=== PATIENT | male | born 1980 | race Two or more races ===

== ENCOUNTER 2021-09-17 22:26 | Emergency (ER) | payer MEDICAID, SELFPAY ==
[2021-09-17 22:32] VITALS: BP 125/81; PULSE 99; RESP 18; TEMP 36.4; O2SAT 100; BMI 22.1
--- NOTE | 2021-09-17 23:47 | ED_ITS ---
HPI - Wound/Laceration General Chief Complaint: Wound/Laceration Stated Complaint: Lac Time Seen by Provider: 09/17/21 23:45 Source: patient Mode of arrival: ambulatory History of Present Illness HPI narrative: 41-year-old male who is presenting with a laceration to the ulnar side of his right forearm that he sustained on a metal door and is unsure of his last tetanus vaccination. He denies any allergies to medications. Related Data Allergies Allergy/AdvReac Type Severity Reaction Status Date / Time No Known Allergies Allergy Verified 09/17/21 22:33 Review of Systems Review of Systems: Pertinent positives and negatives as stated in HPI 10 point review of systems is otherwise negative. [facility] Past Medical History Source: nursing notes reviewed Social History Social History Advance Directives: No Advance Directives Information Provided: No Physical Exam Vital Signs: Vital Signs: Last Vital Signs Temp 97.6 F 09/17/21 22:32 Pulse 99 09/17/21 22:32 Resp 18 09/17/21 22:32 BP 125/81 09/17/21 22:32 Pulse Ox 100 09/17/21 22:32 O2 Del Method 09/17/21 22:32 BMI result Body Mass Index 22.1 VITAL SIGNS: Reviewed. GENERAL: no acute distress. HEAD: Normocephalic/atraumatic EYES: PERRLA, EOMI EARS: Ext canals without abnormality OROPHARYNX: no oral lesions noted, posterior pharynx clear LUNGS: Normal breath sounds. SpO2<100> CARDIOVASCULAR: Regular rate and rhythm without noted murmurs ABDOMEN: Soft, non-tender, non-distended with bowel sounds. MUSCULOSKELETAL: No tenderness, deformities, or effusions noted on gross inspection. EXTREMITIES: No cyanosis, clubbing or edema; RIGHT FOREARM: 4.5 cm L-shaped laceration that is linear in nature, hemostatic SKIN: Inspection of the skin reveals no rashes NEUROLOGIC: Alert and oriented x 4. Strength and sensation to light touch were grossly intact x 4. Course Course Course Narrative: 41-year-old male with history and clinical presentation consistent with laceration to the right forearm which will be repaired, patient will received Tdap. Patient discharged in stable condition. Procedures Laceration Laceration 1: Site: upper extremity Side (If applicable): right Size (cm): 4.5 Description: linear and clean Depth: simple, single layer Local Anesthetic: lidocaine 1% Amount of anesthesia used (mL): 2 Pre-repair: wound explored, irrigated extensively and deep structures intact Skin layer closed with: nylon Size (cm): 4-0 Number of sutures: 4 Technique: simple, interrupted Discharge Plan Discharge Clinical Impression: Laceration Patient Disposition: Home, Self-Care Instructions: Laceration (ED), Care For Your Stitches (ED) Additional Instructions: 1. Recomendar Tylenol/ibuprofeno de venta lana seg?n sea necesario para controlar el dolor. 2. Puede quitar el vendaje y 24 horas y limpiar suavemente con agua y jab?n, aplicar un pramod?ento antibi?brian que est? disponible sin receta y cualquier [facility], aplicar un vendaje sobre el pramod?ento antibi?brian. 3. Regrese a esta cassie de emergencias en 5 d?as para que le quiten las suturas. Regrese a la cassie de emergencias si los s?ntomas empeoran. Print Language: Nepali
[2021-09-17] MEDS: Diphth,Pertus(ACell),Tet Adult 0.5 ML SYRINGE IM (23:49)
[2021-09-17] MEDS: Lidocaine HCl 1 % MPF 5 ML VIAL SUBCUT (23:50)
== END 2021-09-18 00:37 | disposition home or self-care (01) ==
PROVIDERS: Emergency Provider Student in an Organized Health Care Education/Training Program
DX: S51.811A Laceration without foreign body of right forearm, initial encounter (principal); S50.811A Abrasion of right forearm, initial encounter; Y28.9XXA Contact with unspecified sharp object, undetermined intent, initial encounter; Y93.9 Activity, unspecified; Y92.9 Unspecified place or not applicable; Y99.9 Unspecified external cause status
CPT/HCPCS: 12032; 90471; 90715; 99283; 99284

== ENCOUNTER 2021-09-22 16:19 | Emergency (ER) | payer MEDICAID, SELFPAY ==
[2021-09-22 16:42] VITALS: BP 112/58; PULSE 83; RESP 18; TEMP 36.4; O2SAT 97; BMI 24.7
--- NOTE | 2021-09-22 17:11 | ED_ITS ---
HPI - Wound/Laceration General Chief Complaint: Wound/Laceration Stated Complaint: suture removal right wrist Time Seen by Provider: 09/22/21 17:01 Source: patient Mode of arrival: ambulatory Limitations: no limitations History of Present Illness HPI narrative: 41-year-old male here for suture removal from the right wrist. These replaced 6 days ago. No complaints Related Data Allergies Allergy/AdvReac Type Severity Reaction Status Date / Time No Known Allergies Allergy Verified 09/17/21 22:33 Review of Systems Review of Systems: Yes all other systems are reviewed and are negative Constitutional: Constitutional: Reports no additional constitutional complaints, Denies body ache(s), Denies chills, Denies fever(s), Denies headache(s) and Denies weakness Eyes: Eyes: Reports no additional eye complaints and Denies change in vision ENT: Reports system reviewed and no additional complaints, except as documented, Denies dizziness, Denies headache(s), Denies nasal congestion, Denies nasal discharge and Denies neck pain Cardiovascular: Cardiovascular: Reports no additional cardiovascular complaints, Denies chest pain, Denies leg edema and Denies dyspnea Respiratory: Respiratory: Reports no additional respiratory complaints, Denies cough and Denies dyspnea Gastrointestinal: Gastrointestinal: Reports no additional gastrointestinal complaints, Denies abdominal pain, Denies diarrhea, Denies nausea and Denies vomiting Genitourinary: Genitourinary: Denies urinary incontinence Musculoskeletal: Musculoskeletal: Reports no additional musculoskeletal complaints, Denies back pain, Denies arthralgias, Denies joint swelling, Denies neck pain, Denies numbness and Denies tingling Integumentary/Breasts: Skin/Breast: Reports system reviewed and no additional complaints, except as docu and Denies rash Neurologic: Reports system reviewed and no additional complaints, except as documented, Denies Abnormal speech present, Denies dizziness, Denies headache(s), Denies numbness, Denies tingling and Denies weakness [facility] Past Medical History Attestation statement: The following information was validated with the patient. Source: old records reviewed and nursing notes reviewed Social History Social History Advance Directives: No Advance Directives Information Provided: No Physical Exam Vital Signs: Vital Signs: Last Vital Signs Temp 97.5 F 09/22/21 16:42 Pulse 83 09/22/21 16:42 Resp 18 09/22/21 16:42 BP 112/58 L 09/22/21 16:42 Pulse Ox 97 09/22/21 16:42 O2 Del Method 09/22/21 16:42 BMI result Body Mass Index 24.7 Const: General: cooperative, healthy appearing, comfortable and no acute distress Orientation/consciousness: patient oriented x3 Limitations: no limitations HEENT: Head: Yes normal to inspection Ears: hearing grossly normal bilaterally General nose exam: Normal external nose present Face and sinus: Yes normal facial exam Mouth: Normal oral and palatal mucosa present Throat: Yes posterior oropharynx normal Eyes: General: appearance normal, both eyes and all related structures Pupils: Equal, round and reactive pupils present Neck: Neck: Yes normal visual inspection Chest: Chest palpation & inspection: normal inspection of the chest Resp: Effort & Inspection: normal respiratory effort Auscultation: clear to auscultation bilaterally Cardio: Rate: regular rate Rhythm: regular rhythm Peripheral pulses: Peripheral pulses 2+ throughout GI: Inspection: Yes normal to inspection Palpation (GI): Soft to palpation and nontender Auscultation: normal bowel sounds Back/Spine/Pelvis: Thoracic/Lumbar Spine: thoracic and lumbar spine normal to inspection Skin: General skin exam: no rashes or lesions noted Neuro: General: patient oriented x3, no focal motor deficits and normal sensation to monofilament Cranial nerves: Yes Equal, round and reactive pupils present Cognition (Neuro): normal cognition Speech: No Abnormal speech present Gait exam (Neuro): Normal gait present Motor exam (neuro): 5/5 motor strength present throughout Extrem: Other: Over the right lateral wrist there is a laceration with edges that are approximated with sutures present. Full range of motion of the wrist and hand. General: Yes normal to inspection MDM - Wound/Laceration MDM Narrative Medical decision making narrative: 41-year-old male he seen here 4 sutures placed here for suture removal. Sutures were placed on 09/17. Edges are approximated. So we decided to remove the sutures. See procedure note. Medical Records Attestation: I reviewed the patient's medical records. Lab Data Attestation: I reviewed the patient's lab results. Procedures Procedure Narrative Procedure Narrative: Four sutures removed from the site. Wound was cleansed with saline and the skin. Topical Steri-Strips applied Discharge Plan Discharge Clinical Impression: Encounter for removal of sutures Patient Disposition: Home, Self-Care Instructions: Stitches Removal (ED) Interventions: ED Discharge Assessment Last Done: 09/22/21 17:28 Discharge Date/Time: 09/22/21 17:29 Print Language: [place]ian
== END 2021-09-22 17:29 | disposition home or self-care (01) ==
PROVIDERS: Emergency Provider Student in an Organized Health Care Education/Training Program
DX: Z48.02 Encounter for removal of sutures (principal); S61.511D Laceration without foreign body of right wrist, subsequent encounter; X58.XXXD Exposure to other specified factors, subsequent encounter
CPT/HCPCS: 99283

== ENCOUNTER 2021-11-30 07:55 | Emergency (ER) | payer MEDICAID, SELFPAY ==
--- NOTE | ~2021-11-30 | XR_ITS ---
EXAMINATION: XR LUMBOSACRAL SPINE CLINICAL INFORMATION: Low back and leg pain. COMPARISON: None TECHNIQUE: Three views of the lumbosacral spine. FINDINGS: There is normal lumbar lordosis and spinal alignment. The vertebral bodies are intact. Mild to moderate degenerative disc disease at L5-S1. The remainder the intervertebral disc spaces are unremarkable. The soft tissues are unremarkable. XR/XR lumbar spine 2-3V IMPRESSION: L5-S1 mild to moderate degenerative disc disease.
[2021-11-30 07:58] VITALS: BP 124/84; PULSE 82; RESP 18; TEMP 36.6; O2SAT 99; BMI 23.9
--- NOTE | 2021-11-30 10:35 | ED_ITS ---
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 No associated numbness/tingling/weakness of the extremities. No saddle anesthesia. No bowel or bladder incontinence. No fevers, chills. Related Data Previous Rx's Medication Instructions Recorded cyclobenzaprine 10 mg tablet 10 mg PO TID PRN muscle spasm #14 11/30/21 tabs lidocaine 5 % topical patch 1 patch topical DAILY #30 ea 11/30/21 (Lidoderm) naproxen 500 mg tablet 500 mg PO BID PRN pain #30 tabs 11/30/21 Allergies Allergy/AdvReac Type Severity Reaction Status Date / Time No Known Allergies Allergy Verified 09/17/21 22:33 Review of Systems Review of Systems: Yes all other systems are reviewed and are negative Constitutional: Constitutional: Reports no additional constitutional complaints, Denies body ache(s), Denies chills, Denies fever(s), Denies headache (s) and Denies weakness Eyes: Eyes: Reports no additional eye complaints and Denies change in vision ENT: Reports system reviewed and no additional complaints, except as documented, Denies dizziness, Denies headache(s), Denies nasal congestion, Denies nasal discharge and Denies neck pain Cardiovascular: Cardiovascular: Reports no additional cardiovascular complaints, Denies chest pain, Denies leg edema and Denies dyspnea Respiratory: Respiratory: Reports no additional respiratory complaints, Denies cough and Denies dyspnea Gastrointestinal: Gastrointestinal: Reports no additional gastrointestinal complaints, Denies abdominal pain, Denies diarrhea, Denies nausea and Denies vomiting Genitourinary: Genitourinary: Denies urinary incontinence Musculoskeletal: Musculoskeletal: Reports no additional musculoskeletal complaints, Reports back pain, Denies arthralgias, Denies joint swelling, Denies neck pain, Denies numbness, Reports radiating pain into limb and Denies tingling Integumentary/Breasts: Skin/Breast: Reports system reviewed and no additional complaints, except as docu and Denies rash Neurologic: Reports system reviewed and no additional complaints, except as documented, Denies Abnormal speech present, Denies dizziness, Denies headache(s), Denies numbness, Denies tingling and Denies weakness PMFSH Past Medical History Attestation statement: The following information was validated with the patient. Source: old records reviewed and nursing notes reviewed Social History Social History Advance Directives: No Advance Directives Information Provided: Yes Physical Exam Vital Signs: Vital Signs: Last Vital Signs Temp 98 F 11/30/21 07:58 Pulse 82 11/30/21 07:58 Resp 18 11/30/21 07:58 BP 124/84 11/30/21 07:58 Pulse Ox 99 11/30/21 07:58 BMI result Body Mass Index 23.9 Const: General: cooperative, healthy appearing, comfortable and no acute distress Orientation/consciousness: patient oriented x3 Limitations: no limitations HEENT: Head: Yes normal to inspection Ears: hearing grossly normal bilaterally General nose exam: Normal external nose present Face and sinus: Yes normal facial exam Mouth: Normal oral and palatal mucosa present Throat: Yes posterior oropharynx normal Eyes: General: appearance normal, both eyes and all related structures Pupils: Equal, round and reactive pupils present Neck: Neck: Yes normal visual inspection Chest: Chest palpation & inspection: normal inspection of the chest Resp: Effort & Inspection: normal respiratory effort Auscultation: clear to auscultation bilaterally Cardio: Rate: regular rate Rhythm: regular rhythm Peripheral pulses: Peripheral pulses 2+ throughout GI: Inspection: Yes normal to inspection Palpation (GI): Soft to palpation and nontender Auscultation: normal bowel sounds Back/Spine/Pelvis: Other: TTP to midline lumbar spine and right SI joint with compression as well as right buttocks No step offs or deformities Pain with right straight leg raise. Thoracic/Lumbar Spine: thoracic and lumbar spine normal to inspection Skin: General skin exam: no rashes or lesions noted Neuro: General: patient oriented x3, no focal motor deficits and normal sensation to monofilament Cranial nerves: Yes CN's II-XII intact bilaterally, Yes Equal, round and reactive pupils present, Yes Bilaterally intact EOM present, Yes Nystagmus not present, Yes Normal facial strength present and Yes Midline tongue present Cognition (Neuro): normal cognition Speech: No Abnormal speech present Gait exam (Neuro): Normal gait present Motor exam (neuro): 5/5 motor strength present throughout Sensory Exam: Normal double simultaneous stimulation for sensation Deep tendon reflexes (DTR's): Right patellar reflex intensity grade: 2+ and Left patellar reflex intensity grade: 2+ Extrem: General: Yes normal to inspection Course Course Course Narrative: X-rays show no bony abormality. Likely lumbar radiculopathy Will start on NSAID, flexeril, lidoderm prn. Reviewed worrisome signs/symptoms with patient and when to seek additioncal care. comfortable with plan for discharge home. MDM - Back Pain/Injury MDM Narrative Medical decision making narrative: 41 yo male here with right sided low back pain with radiation to right leg after lifting pain bucket yesterday No neuro deficits or red flag symptoms Maik check x-rays. provide analgesia -low concern for epidural abscess with normal neuro exam, no h/o if fever/IVDA/immunocompromised state Differential Diagnosis Differential diagnosis: Likely lumbar radiculopathy, sciatica and strain of lumbar region Medical Records Attestation: I reviewed the patient's medical records. Lab Data Attestation: I reviewed the patient's lab results. Imaging Data lumbar x-ray: Attestation: I personally reviewed and interpreted this imaging study as follows: Radiologist's impression: Launch?Image [place] [id number] XRay Report Signed Patient: Vahe Vargas MR#: [id number] : 1980 Acct:[id number] Age/Sex: 41 / M ADM Date: 11/30/21 Loc: HO.ED Attending Dr: Ordering Physician: Louisa Campa NP Date of Service: 11/30/21 Procedure(s): XR lumbar spine 2-3V Accession Number(s): [id number] cc: Louisa Campa NP~ EXAMINATION: XR LUMBOSACRAL SPINE CLINICAL INFORMATION: Low back and leg pain. COMPARISON: None TECHNIQUE: Three views of the lumbosacral spine. FINDINGS: There is normal lumbar lordosis and spinal alignment. The vertebral bodies are intact. Mild to moderate degenerative disc disease at L5-S1. The remainder the intervertebral disc spaces are unremarkable. The soft tissues are unremarkable. XR/XR lumbar spine 2-3V IMPRESSION: L5-S1 mild to moderate degenerative disc disease. Discharge Plan Discharge Clinical Impression: Lumbar radiculopathy Patient Disposition: Home, Self-Care Instructions: Lumbar Radiculopathy (ED), Lower Back Exercises (ED) Additional Instructions: Las radiograf?as no muestran anomal?as ?seas. Calor o hielo en la espalda. Estiramiento suave. [place] los medicamentos seg?n lo prescrito. Sin levantar objetos pesados ??ni agacharse. [place] esto fue un seguimiento relacionado con el trabajo con conexi?n laboral al [phone]. Prescriptions: New naproxen 500 mg tablet 500 mg PO BID PRN (Reason: pain) Qty: 30 0RF cyclobenzaprine 10 mg tablet 10 mg PO TID PRN (Reason: muscle spasm) Qty: 14 0RF lidocaine [Lidoderm] 5 % adhesive patch,medicated 1 patch topical DAILY Qty: 30 0RF Rx Instructions: leave on most painful area for up to 12 hrs Referrals: [facility] [Primary Care Provider] - Stand Alone Forms: Work/School Release
[2021-11-30] MEDS: Ketorolac Tromethamine 60 MG/2 ML VIAL IM (10:56)
== END 2021-11-30 12:19 | disposition home or self-care (01) ==
PROVIDERS: Emergency Provider Emergency Medicine
DX: M54.16 Radiculopathy, lumbar region (principal); M54.50 Low back pain, unspecified; M79.604 Pain in right leg
CPT/HCPCS: 72100; 96372; 99283; 99284; J1885

== ENCOUNTER 2022-01-31 16:00 | Outpatient (RCR) | payer MEDICAID, SELFPAY | END 2022-02-08 14:54 | disposition home or self-care (01) | LOC: HO.PT 16:00 | PROVIDERS: PCP Emergency Medicine; Visit Provider Emergency Medicine | DX: M54.41 Lumbago with sciatica, right side (principal) | CPT/HCPCS: 97110; 97161; 97530 ==